=== PATIENT | female | born 1975 | race Caucasian/White ===

== ENCOUNTER → 2020-10-03 | Outpatient (CLI) | payer MEDICARE | LOC: EXRD 10:51 | DX: R13.10 Dysphagia, unspecified (principal) | CPT/HCPCS: 76536 ==

== ENCOUNTER → 2020-10-23 | Outpatient (CLI) | payer MEDICARE | LOC: US 09:47 | DX: R10.84 Generalized abdominal pain (principal); R14.0 Abdominal distension (gaseous); R11.0 Nausea | CPT/HCPCS: 76705 ==

== ENCOUNTER → 2020-11-05 | Outpatient (CLI) | payer MEDICARE | LOC: NM 11-01 09:00 | DX: R10.84 Generalized abdominal pain (principal); K31.84 Gastroparesis | CPT/HCPCS: 78264; A9541 ==

== ENCOUNTER → 2020-11-22 | Outpatient (CLI) | payer MEDICARE | LOC: US 13:54 | DX: S89.91XA Unspecified injury of right lower leg, initial encounter (principal); R60.0 Localized edema | CPT/HCPCS: 73590; 93971 ==

== ENCOUNTER → 2020-12-11 | Outpatient (CLI) | payer MEDICARE | LOC: KOH-I 08:13 | DX: R10.9 Unspecified abdominal pain (principal) | CPT/HCPCS: 74176 ==